=== PATIENT | female | born 1950 | race African-American/Black ===

== ENCOUNTER 2019-11-21 13:33 | Emergency (ER) | payer MEDICAID, MEDICARE ==
[~2019-11-21] VITALS: Ht 165.1 cm; Wt 70.0 kg
[~2019-11-21 13:33] MED LIST: AMLO10TA4; ATOR20TA; DICY20TA54; DIVA-18; DONE10TA43; ESOM40CA
[2019-11-21] MEDS ORDERED: METHYLPREDNISOLONE SOD SUCC 125 MG/2 ML VIAL IV STA (15:44)
[2019-11-21] MEDS ORDERED: ALBUTEROL (0.083%) 2.5MG/3ML NEB HHN STA ×2 (15:44→19:00)
[2019-11-21] MEDS ORDERED: IPRATROPIUM BROMIDE (0.02%) 0.5MG/2.5ML NEB HHN STA (15:44)
[2019-11-21] MEDS ORDERED: ASPIRIN 81MG TABLET PO ONE (15:45)
[2019-11-21 16:19] LABS: HEMOGLOBIN. 12.1 g/dL (12.0-16.0); LYMPHOCYTES % 29.2 % (20.0-50.0); MEAN CORPUSCULAR HEMOGLOBIN 32.6 pg (28.0-32.0); MEAN PLATELET VOLUME 8.1 fl (7.4-10.4); MONOCYTES % 11.2 % (2.0-8.0); NEUTROPHILS % 45.6 % (40.0-76.0); PLATELET 209 x1000/uL (130-400); RED BLOOD CELL COUNT 3.71 mill/uL (4.2-5.4); RED CELL DISTRIBUTION WIDTH 12.6 % (11.6-14.6)
[2019-11-21 16:25] LABS: CHLORIDE 109 mEq/L (98-107)
[2019-11-21] MEDS ORDERED: IPRATROPIUM/ALBUTEROL 0.5-3(2.5)MG/3ML NEB ONE (16:46)
[2019-11-21 21:38] VITALS: BP 115/66
== END 2019-11-21 21:39 | disposition home or self-care (01) ==
LOC: ER 13:33
DX: J44.1 Chronic obstructive pulmonary disease with (acute) exacerbation (principal); I10 Essential (primary) hypertension; G40.909 Epilepsy, unspecified, not intractable, without status epilepticus; E78.00 Pure hypercholesterolemia, unspecified; F03.90 Unspecified dementia, unspecified severity, without behavioral disturbance, psychotic disturbance, mood disturbance, and anxiety; Z88.0 Allergy status to penicillin; Z88.2 Allergy status to sulfonamides
CPT/HCPCS: 36415; 71045; 80053; 83880; 84484; 85025; 93005; 94640; 96374; 99284; J2930; J7611; J7620